=== PATIENT | male | born 1985 | race Caucasian/White ===

== ENCOUNTER 2020-10-03 15:21 | Emergency (ER) | payer BC, OTHER ==
[2020-10-03] MEDS ORDERED: Sodium Chloride 0.9% 10 ML Syringe FLUSH PRN (15:35)
[2020-10-03] MEDS ORDERED: Ondansetron 4 MG/2 ML SDV IVPUSH ONE (15:36)
[2020-10-03] MEDS ORDERED: Morphine 4 MG/ML VIAL IVPUSH ONE (15:36)
[2020-10-03] MEDS ORDERED: Prochlorperazine 10 MG in Sodium Chloride 0.9% 50 ML IV ONE (15:36)
[2020-10-03] MEDS ORDERED: Ketorolac 30 MG/ML SDV IVPUSH ONE (15:38)
[2020-10-03] MEDS ORDERED: Sodium Chloride 0.9% 1,000 ML IV SCH (15:45)
--- NOTE | 2020-10-03 16:24 | EDM.PDOC ---
ED HPI GENERAL MEDICAL PROBLEM - General Stated Complaint: POSSIBLE KIDNEY STONE Time Seen by Provider: 10/03/20 15:40 Source of Information: Reports: Patient, Family History Limitations: Reports: No Limitations - History of Present Illness INITIAL COMMENTS - FREE TEXT/NARRATIVE: Patient presented to the ED from the [facility] because of Rt flank pain, sharp, 10/ with associated nausea and vomiting. - Related Data Allergies Allergy/AdvReac Type Severity Reaction Status Date / Time No Known Allergies Allergy Verified 12/21/16 18:17 Home Meds: Home Meds Acetaminophen/oxyCODONE [Percocet 325-5 MG] 1 each PO Q4H PRN #15 tab 10/03/20 [Rx] Ondansetron [Zofran ODT] 4 mg PO Q4H PRN #7 tab.dis 10/03/20 [Rx] Tamsulosin [Tamsulosin 24 Hr] 0.4 mg PO DAILY #10 cap.er 10/03/20 [Rx] Past Medical History Gastrointestinal History: Reports: None Musculoskeletal History: Reports: Fracture Other Musculoskeletal History: Finger and left ankle - Past Surgical History GI Surgical History: Reports: Hernia, Abdominal Social & Family History - Family History Family Medical History: No Pertinent Family History - Caffeine Use Caffeine Use: Reports: Soda ED ROS GENERAL - Review of Systems Review Of Systems: See Below Constitutional: Reports: No Symptoms HEENT: Reports: No Symptoms Respiratory: Reports: No Symptoms Cardiovascular: Reports: No Symptoms Endocrine: Reports: No Symptoms GI/Abdominal: Reports: Abdominal Pain, Nausea, Vomiting Musculoskeletal: Reports: No Symptoms Skin: Reports: No Symptoms Neurological: Reports: No Symptoms ED EXAM, GI/ABD - Physical Exam Exam: See Below Exam Limited By: No Limitations General Appearance: Alert, No Apparent Distress Ears: Normal External Exam, Normal Canal Nose: Normal Inspection, Normal Mucosa Throat/Mouth: Normal Inspection, Normal Lips, Normal Teeth Head: Atraumatic, Normocephalic Neck: Normal Inspection, Supple, Non-Tender, Full Range of Motion Respiratory/Chest: No Respiratory Distress, Lungs Clear, Normal Breath Sounds Cardiovascular: Normal Peripheral Pulses, Regular Rate, Rhythm GI/Abdominal Exam: Soft, Other (RCVAT) Back Exam: Normal Inspection, Full Range of Motion Extremities: Normal Inspection, Normal Range of Motion Course - Vital Signs Text/Narrative:: Labs/CT bad-pelvis result was discussed with patient NS 1 L bolus Zofran 4 mg IV x1 Compazine 4 mg IV x1 Toradol 30 mg IV x1 Morphine 4 mg IV x1 - Orders/Labs/Meds Orders: Active Orders 24 hr Category Date Time Status Abdomen Pelvis wo Cont [CT] Stat Exams 10/03/20 15:35 Taken Sodium Chloride 0.9% [Normal Saline] 1,000 ml Med 10/03/20 15:45 Active IV ASDIRECTED Sodium Chloride 0.9% [Saline Flush] Med 10/03/20 15:35 Active 10 ml FLUSH ASDIRECTED PRN Saline Lock Insert [OM.PC] Routine Oth 10/03/20 15:35 Ordered Medication Orders Sodium Chloride (Normal Saline) 1,000 mls @ 999 mls/hr IV ASDIRECTED YASMEEN Last Admin: 10/03/20 16:24 Dose: 999 mls/hr Documented by: PARISHIMATu Sodium Chloride (Saline Flush) 10 ml FLUSH ASDIRECTED PRN PRN Reason: Keep Vein Open Labs: Laboratory Tests 10/03/20 10/03/20 Range/Units 15:44 15:44 WBC 9.6 (3.2-10.1) x10-3/uL RBC 5.67 (3.90-5.90) x10(6)uL Hgb 16.2 (12.9-17.7) g/dL Hct 48.7 (38.3-50.1) % MCV 85.8 (80.8-98.7) fL MCH 28.6 (27.0-33.3) pg MCHC 33.3 (28.7-35.3) g/dL RDW 12.8 (12.4-15.0) % Plt Count 275 (117-477) x10(3)uL MPV 9.4 (6.7-11.0) fL Neut % (Auto) 67.4 (40.3-71.8) % Lymph % (Auto) 22.4 (15.8-45.3) % [place] % (Auto) 7.0 (5.5-15.2) % Eos % (Auto) 2.4 (0.1-6.8) % Baso % (Auto) 0.8 (0.3-3.8) % Neut # (Auto) 6.4 (1.7-6.9) x10-3/uL Lymph # (Auto) 2.1 (0.5-4.5) x10-3/uL [place] # (Auto) 0.7 (0.0-1.2) x10-3/uL Eos # (Auto) 0.2 (0.0-0.6) x10-3/uL Baso # (Auto) 0.1 (0.0-0.3) x10-3/uL Sodium 142 (135-145) mmol/L Potassium 3.5 (3.5-5.3) mmol/L Chloride 104 (100-110) mmol/L Carbon Dioxide 26 (21-32) mmol/L BUN 8 (7-18) mg/dL Creatinine 1.4 H (0.70-1.30) mg/dL Est Cr Clr Drug Dosing TNP Estimated GFR (MDRD) 58 L (>60) BUN/Creatinine Ratio 5.7 L (9-20) Glucose 149 H (80-116) mg/dL Calcium 9.3 (8.6-10.2) mg/dL Meds: Medications Generic Name Dose Route Start Last Admin Trade Name Freq PRN Reason Stop Dose Admin Sodium Chloride 1,000 mls @ 999 mls/hr 10/03/20 15:45 10/03/20 16:24 Normal Saline IV 999 mls/hr ASDIRECTED YASMEEN Administration Sodium Chloride 10 ml 10/03/20 15:35 Saline Flush FLUSH ASDIRECTED PRN Keep Vein Open Discontinued Medications Generic Name Dose Route Start Last Admin Trade Name Freq PRN Reason Stop Dose Admin Prochlorperazine Edisylate 10 52 mls @ 150 mls/hr 10/03/20 15:36 10/03/20 16:40 mg/ Sodium Chloride IV 10/03/20 15:56 150 mls/hr ONETIME ONE Administration Ketorolac Tromethamine 30 mg 10/03/20 15:38 10/03/20 16:34 Toradol IVPUSH 10/03/20 15:39 30 mg ONETIME ONE Administration Morphine Sulfate 4 mg 10/03/20 15:36 10/03/20 16:20 Morphine IVPUSH 10/03/20 15:37 4 mg ONETIME ONE Administration Ondansetron HCl 4 mg 10/03/20 15:36 10/03/20 16:18 Zofran IVPUSH 10/03/20 15:37 4 mg ONETIME ONE Administration Departure - Departure Time of Disposition: 17:00 Disposition: Home, Self-Care 01 Condition: Good Clinical Impression: Nephrolithiasis, Cholelithiasis - Discharge Information Prescriptions: Tamsulosin [Tamsulosin 24 Hr] 0.4 mg PO DAILY #10 cap.er Acetaminophen/oxyCODONE [Percocet 325-5 MG] 1 each PO Q4H PRN #15 tab PRN Reason: Pain Ondansetron [Zofran ODT] 4 mg PO Q4H PRN #7 tab.dis PRN Reason: Nausea Instructions: Kidney Stones, [id number] Referrals: Mathew Alba MD [Primary Care Provider] - Additional Instructions: Please read discharge instructions on Kidney stones and Gallstones Increase oral fluids Flomax 1 tablet daily for 10 days Zofran ODT 4 mg every 4 hours as needed for pain Percocet 5/325, 1-2 tablets every 4-6 hours as needed for pain Follow up with your doctor next week - My Orders Last 24 Hours: My Active Orders 10/03/20 15:35 Abdomen Pelvis wo Cont [CT] Stat Sodium Chloride 0.9% [Saline Flush] 10 ml FLUSH ASDIRECTED PRN Saline Lock Insert [OM.PC] Routine 10/03/20 15:45 Sodium Chloride 0.9% [Normal Saline] 1,000 ml IV ASDIRECTED - Assessment/Plan Last 24 Hours: My Active Orders 10/03/20 15:35 Abdomen Pelvis wo Cont [CT] Stat Sodium Chloride 0.9% [Saline Flush] 10 ml FLUSH ASDIRECTED PRN Saline Lock Insert [OM.PC] Routine 10/03/20 15:45 Sodium Chloride 0.9% [Normal Saline] 1,000 ml IV ASDIRECTED
--- NOTE | 2020-10-03 19:00 | CT ---
INDICATION: Right flank pain. Question kidney stone. CT ABDOMEN AND PELVIS WITHOUT CONTRAST: Spiral 2.5 mm axial sections were obtained through the abdomen and pelvis with sagittal and coronal reconstructions 10/03/20 - no comparisons. Total exam DLP was 1149.32 mGy-cm. The lower lung abad and pleural spaces visualized showed evidence of probable fibrotic changes in the lingula and left lower lobe, although minimal patchy pneumonia in those areas and/or atelectasis would also be a consideration. The heart appeared normal in size. No pericardial effusion was seen. The gallbladder showed evidence of multiple calculi. It was somewhat elongated at 91 mm, but did not appear grossly distended to strongly suggest cholecystitis. This should be correlated clinically. The upper abdominal organs - liver, spleen, pancreas, adrenal glands appeared unremarkable. No retroperitoneal mass was seen. Retroperitoneal lymphadenopathy is minimal and nonspecific. The left kidney appeared normal except for a 5.2 mm calculus in the mid pole most likely within a calyx. On the right, the kidney appears slightly prominent in size with renal fascial thickening and pyelocaliectasis and ureterectasis down to the pelvis 2.5 cm from the ureterovesical junction where a 2.5 mm calculus is lodged, producing at least a moderate degree of obstructive uropathy. Urinary bladder was not well-delineated, but appeared grossly normal. No significant prostatic enlargement was seen. The appendix appeared normal, visualized on coronal images 49-57 and axial images 134-154 - no evidence of appendicitis. No evidence of free air or bowel obstruction was identified. No additional organomegaly, mass lesions or free fluid collections were identified in the abdomen or pelvis. IMPRESSION: 1. Obstructive uropathy on the right due to a 2.5 mm calculus 2.5 cm from the ureterovesical junction in lower pelvis. Moderate degree of obstructive uropathy is suggested. 2. A single 5.2 mm calculus is noted at the mid pole of the left kidney. It is nonobstructive. 3. Cholelithiasis with somewhat elongated, but probably not acute gallbladder. 4. Parenchymal changes at the lingula and left lower lobe at the lung base most likely atelectatic and/or fibrotic in nature, but make it difficult to entirely exclude some minimal patchy bronchopneumonia - correlate clinically. Report was called to Dr. Gutiérrez at 1622 hours. [facility]
[2020-10-03 19:29] VITALS: BP 174/89; PULSE 70
== END 2020-10-03 18:00 | disposition home or self-care (01) ==
LOC: FB.ED 15:21
DX: K80.20 Calculus of gallbladder without cholecystitis without obstruction (principal); N20.0 Calculus of kidney
CPT/HCPCS: 36415; 74176; 80048; 85025; 96365; 96375; 99284-25; J0780; J1885; J2270; J2405; J7030